=== PATIENT | female | born 1975 | race Caucasian/White ===

== ENCOUNTER 2021-07-02 09:10 | Outpatient (CLI) | payer BC ==
[2021-07-02] MEDS ORDERED: Iopamidol 300 61% 100 ML VIAL FS ONE (15:30)
== END 2021-07-02 09:11 | disposition home or self-care (01) ==
LOC: CSHCT 09:10
PROVIDERS: ATTEND Internal Medicine Gastroenterology
DX: R10.32 Left lower quadrant pain (principal); N85.2 Hypertrophy of uterus
CPT/HCPCS: 72193